=== PATIENT | male | born 2000 | race Caucasian/White ===

== ENCOUNTER 2024-01-05 00:42 | Emergency (ER) | payer BC, OTHER ==
[2024-01-05 01:05] VITALS: BP 112/68; PULSE 106; RESP 18; TEMP 101.7; BMI 23.4
[2024-01-05] MEDS ORDERED: prednisoLONE SODIUM PHOSPHATE 15 MG/5 ML ORAL SOLN BOTTLE ONE (01:39)
[2024-01-05] MEDS: prednisoLONE SODIUM PHOSPHATE 15 MG/5 ML ORAL SOLN BOTTLE PO ONE (01:47)
== END 2024-01-05 02:19 | disposition home or self-care (01) ==
LOC: FER 00:42
DX: B27.90 Infectious mononucleosis, unspecified without complication (principal); R10.12 Left upper quadrant pain; J02.9 Acute pharyngitis, unspecified
CPT/HCPCS: 71045-TC-FY; 99283-25